=== PATIENT | female | born 1980 | race Caucasian/White ===

== ENCOUNTER 2024-01-25 22:23 | Inpatient (IN) | payer OTHER, SELFPAY ==
--- NOTE | 2024-01-25 18:02 | ED.GENMED ---
ED Provider Triage
<Radha Barnhart PA-C - Last Filed: 01/25/24 18:06>
-
Patient seen by provider in Triage?: Seen in Triage
Attestation: A medical screening examination has been initiated by a qualified medical provider. Based on the assessment performed at this time, it has been determined that an emergent medical condition may exist and the patient has been informed
that further medical evaluation and possible additional diagnostic testing may be needed.
HPI: 43yoF here with flu-like symptoms x 4 days. C/o body aches, ABURTO, cough, SOB, subjective fevers. Also having elevated heart rates at home. She believes she has the flu.
GENERAL: Alert , in no apparent distress
EYE: No visual abnormalities.
NECK: Trachea midline
ENT: No visible abnormalities.
LUNGS: No acute respiratory distress
NEUROLOGICAL: Alert and oriented
SKIN: Skin intact. No visible changes.
MUSCULOSKELETAL: Moving extremities normally
PSYCH: Normal and appropriate interaction.
This is a medical evaluation conducted in person to initiate diagnostic evaluation and provide initial therapeutics. Please see further documentation by the treating clinician.
Patient tachycardic in the 130-140s during triage. Cardiac labs, EKG, COVID/flu swab, and CXR ordered.
History of Present Illness
<Radha Barnhart PA-C - Last Filed: 01/25/24 18:06>
General
Chief Complaint: Cold/Flu/URI Symptoms
Time Seen by Provider: 01/25/24 18:23
<Albino Ardon DO - Last Filed: 01/25/24 20:51>
General
Source: patient and spouse
Exam Limitations: none
Nursing documentation reviewed up to this point in time: agreed with
History of Present Illness
History of Present Illness:
Seen with triage PA agree with assessment and plan 43-year-old female -induced hypertension not on antihypertensives been sick for for 5 days cough fatigue no hemoptysis no abdominal pain vomited after she ate no dysuria or frequency,
thinks she may have the flu, drinks alcohol socially not excess,
Past History
<Albino Ardon DO - Last Filed: 01/25/24 20:51>
Past History
ED Past Medical History: HTN
Social History
Tobacco: Non-smoker
Alcohol: Occasional
Drug: None
Personal:
Living: with family
Employment: Employed
Review of Systems
<Albino Ardon DO - Last Filed: 01/25/24 20:51>
Review of Systems
All Other Systems: Not applicable
Constitutional: Reports fever and fatigue
Respiratory: Reports cough and trouble breathing
ABD/GI: Reports vomiting and diarrhea; Denies abdominal pain
: Reports no symptoms
Musculoskeletal: Reports muscle stiffness
Neurological: Reports dizzy and weakness
Phy Exam
<Albino Ardon DO - Last Filed: 01/25/24 20:51>
Physical Exam
Physical Exam:
Physical Exam
General: Ill-appearing female
Neck: Lips are dry
Heart: Tachycardic
Lungs: Bilateral crackles
Abdomen: Not tender
Neuro: alert and oriented. no focal neurological deficits
Skin: no rash
Psychiatric: well kept. interactive and cooperative
Extremities: no edema. No calf pain
Course
<Radha Barnhart PA-C - Last Filed: 01/25/24 18:06>
Orders/Labs/Results
Orders:
Orders
01/25/24 18:03
Electrocardiogram (*1) Urgent
Reason for Study: Shortness of Breath
EKG- Treatment ONCE
01/25/24 18:04
CR Chest - 2 Views Urgent
Comment:
Reason For Exam: Cough, SOB
01/25/24 18:55
COVID-19 Antigen Urgent
Source: Nasal Swab
Complete Blood Count/With Diff Urgent
Comprehensive Metabolic Panel Urgent
Troponin I Urgent
Influenza A+B Rapid Molecular Urgent
KATHY Source: Nasal Swab
Specimen Description:
01/25/24 19:00
0.9% Sodium Chloride 1000 ml [Nss] 1,000 ml IV BOLUS
Acetaminophen [Tylenol] 650 mg PO NOW STA
Ipratropium/Albuterol Sulfate [Duoneb] 3 ml INH R NOW STA
Ketorolac [Toradol] 30 mg IV NOW STA
01/25/24 19:52
Ondansetron Injectable [Zofran] 4 mg IV NOW STA
01/25/24 20:08
CefTRIAXone [Rocephin] 1,000 mg IV NOW STA
Dexamethasone Sod Phosphate [Decadron] 10 mg IV NOW STA
01/25/24 20:47
0.9% Sodium Chloride 1000 ml [Nss] 1,000 ml IV BOLUS
Ondansetron Injectable [Zofran] 4 mg IV NOW STA
Abnormal Lab Results
01/25/24
18:55
MCV 73.8 L fL
(81.0-99.0)
MCH 23.6 L pg
(27.0-31.0)
MCHC 32.0 L g/dL
(33.0-37.0)
RDW 15.9 H %
(11.5-14.5)
Absolute Lymphs (auto) 0.8 L 10^3/uL
(1.2-3.4)
Neutrophils % 77.1 H %
(42.2-75.2)
Lymphocytes % 13.0 L %
(20.5-51.1)
BUN 21 H mg/dl
(7-17)
Glucose 111 H mg/dl
(70-99)
Calcium 10.7 H mg/dl
(8.4-10.2)
Alkaline Phosphatase 135 H U/L
(38-126)
01/25/24 18:55
01/25/24 18:55
Vital Signs
Initial and Last Documented VS:
Initial Vital Signs
Temp Pulse Resp BP Pulse Ox
99.2 F 138 18 141/102 96
01/25/24 18:03 01/25/24 18:03 01/25/24 18:03 01/25/24 18:03 01/25/24 18:03
Last Documented Vital Signs
Temp Pulse Resp BP Pulse Ox
99.2 F 138 18 138/101 92
01/25/24 18:03 01/25/24 18:03 01/25/24 18:03 01/25/24 18:48 01/25/24 20:15
<Albino Ardon, DO - Last Filed: 01/25/24 20:51>
Orders/Labs/Results
Orders:
Orders
01/25/24 18:03
Electrocardiogram (*1) Urgent
Reason for Study: Shortness of Breath
EKG- Treatment ONCE
01/25/24 18:04
CR Chest - 2 Views Urgent
Comment:
Reason For Exam: Cough, SOB
01/25/24 18:55
COVID-19 Antigen Urgent
Source: Nasal Swab
Complete Blood Count/With Diff Urgent
Comprehensive Metabolic Panel Urgent
Troponin I Urgent
Influenza A+B Rapid Molecular Urgent
KATHY Source: Nasal Swab
Specimen Description:
01/25/24 19:00
0.9% Sodium Chloride 1000 ml [Nss] 1,000 ml IV BOLUS
Acetaminophen [Tylenol] 650 mg PO NOW STA
Ipratropium/Albuterol Sulfate [Duoneb] 3 ml INH R NOW STA
Ketorolac [Toradol] 30 mg IV NOW STA
01/25/24 19:52
Ondansetron Injectable [Zofran] 4 mg IV NOW STA
01/25/24 20:08
CefTRIAXone [Rocephin] 1,000 mg IV NOW STA
Dexamethasone Sod Phosphate [Decadron] 10 mg IV NOW STA
01/25/24 20:47
0.9% Sodium Chloride 1000 ml [Nss] 1,000 ml IV BOLUS
Ondansetron Injectable [Zofran] 4 mg IV NOW STA
Abnormal Lab Results
01/25/24
18:55
MCV 73.8 L fL
(81.0-99.0)
MCH 23.6 L pg
(27.0-31.0)
MCHC 32.0 L g/dL
(33.0-37.0)
RDW 15.9 H %
(11.5-14.5)
Absolute Lymphs (auto) 0.8 L 10^3/uL
(1.2-3.4)
Neutrophils % 77.1 H %
(42.2-75.2)
Lymphocytes % 13.0 L %
(20.5-51.1)
BUN 21 H mg/dl
(7-17)
Glucose 111 H mg/dl
(70-99)
Calcium 10.7 H mg/dl
(8.4-10.2)
Alkaline Phosphatase 135 H U/L
(38-126)
01/25/24 18:55
01/25/24 18:55
Vital Signs
Initial and Last Documented VS:
Initial Vital Signs
Temp Pulse Resp BP Pulse Ox
99.2 F 138 18 141/102 96
01/25/24 18:03 01/25/24 18:03 01/25/24 18:03 01/25/24 18:03 01/25/24 18:03
Last Documented Vital Signs
Temp Pulse Resp BP Pulse Ox
99.2 F 138 18 138/101 92
01/25/24 18:03 01/25/24 18:03 01/25/24 18:03 01/25/24 18:48 01/25/24 20:15
<Albino Ardon DO - Last Filed: 01/25/24 20:51>
*Critical Care Note
Total Time (30-74mins, 75-104mins- exclusive of procedures): Not Applicable
<Albino Ardon, - Last Filed: 01/25/24 20:51>
Update Note
Update Note:
Update labs noted viral swabs noted chest x-ray noted report noted will start on antibiotics patient and spouse updated
8:45 PM patient with persistent nausea vomiting not tolerating anything by mouth, despite IV fluids multiple doses of antiemetics at this point I think will be prudent to admit her to the hospital she been sick for most of the week
ED Attending Note
<Radha Barnhart PA-C - Last Filed: 01/25/24 18:06>
-
Portions of this chart may have been created with voice recognition software.� Occasional wrong word or��sound alike� substitutions may have occurred due to the inherent limitations of voice recognition software.
Discharge Plan
Departure
Patient Disposition: Admit
Date of Disposition: 01/25/24
Time of Disposition: 20:49
Admit to: Med/Surg
Presentation/result/management discussed w/ accepting MD/DO: Hospitalist
Patient with high blood pressure during this ER visit?: Yes
Condition: Fair
Covid-19: Negative COVID-19
Discharge Problem:
Intractable nausea and vomiting, Community acquired pneumonia
Prescriptions:
No Action
cetirizine 10 MG tablet
10 mg PO HS
montelukast 10 MG tablet
10 mg PO HS
vilazodone [Viibryd] 40 mg Tablet
40 mg PO HS
Referrals:
UNKNOWN - PT DOES,NOT KNOW [Family Provider] -
Interventions
Interventions:
*Risk Screen - Suicide Last Done: 01/25/24 18:03
*General Assessment Last Done: 01/25/24 18:03
*Neglect/Abuse Screening Last Done: 01/25/24 18:03
ED- Fall Risk Assessment Last Done: 01/25/24 18:49
*ED COVID-19 Vaccine History Last Done: 01/25/24 18:03
ED- Pulmonary Assessment Last Done: 01/25/24 18:49
Discharge Date and Time
Print Language: SETSWANA
[2024-01-25 18:03] VITALS: BP 141/102
[2024-01-25 18:48] VITALS: BP 138/101; BMI 31.2
[2024-01-25 19:02] LABS: % Basophils 0.5 % (0-2); % Eosinophils 0.5 % (0-6); % Immature Granulocytes 0.2 % (0-0.5); % Monocytes 8.7 % (1.7-9.3); % Neutrophils 77.1 % (42.2-75.2); Absolute Lymphocytes 0.8 10^3/uL (1.2-3.4); Absolute Monocytes 0.5 10^3/uL (0.1-0.6); Absolute Neutrophils 4.8 10^3/uL (1.4-6.5); Hematocrit 39.1 % (37.0-47.0); Hemoglobin 12.5 g/dL (12.0-16.0); Mean Corpuscular Hgb 23.6 pg (27.0-31.0); Mean Corpuscular Volume 73.8 fL (81.0-99.0); Mean Platelet Volume 9.6 fL (7.4-10.4); Nucleated Red Blood Cells % 0 %; Platelet Count 257 10^3/uL (130-400); Red Cell Dist. Width 15.9 % (11.5-14.5); White Blood Cell Count 6.2 10^3/uL (4.8-10.8)
[2024-01-25] MEDS: TYLENOL 650 MG PO (19:15)
[2024-01-25] MEDS: NSS 1000 IV ×2 (19:15→20:52)
[2024-01-25] MEDS: DUONEB 3 ML INH (19:16)
[2024-01-25] MEDS: TORADOL 30 MG IV (19:16)
[2024-01-25 19:23] LABS: ALT (SGPT) 25 U/L (0-35); AST (SGOT) 27 U/L (14-36); Albumin 4.3 g/dl (3.5-5.0); Alkaline Phosphatase 135 U/L (38-126); Blood Urea Nitrogen 21 mg/dl (7-17); Calcium 10.7 mg/dl (8.4-10.2); Carbon Dioxide 22 mmol/L (22-30); Chloride 104 mmol/L (98-107); Estimated Creatinine Clearance > 125 ml/min; Glucose 111 mg/dl (70-99); Potassium 3.9 mmol/L (3.5-5.1); Sodium 139 mmol/L (135-145); Total Bilirubin 0.3 mg/dl (0.2-1.3); Total Protein 7.1 g/dl (6.3-8.2); eGFR > 60.00
[2024-01-25 19:27] LABS: Troponin I < 0.012 ng/ml
[2024-01-25 19:37] LABS: COVID-19 Antigen Negative (Negative)
[2024-01-25] MEDS: ZOFRAN 4 MG IV ×2 (19:55→20:50)
[2024-01-25] MEDS: DECADRON 10 MG IV (20:42)
[2024-01-25] MEDS: ROCEPHIN 1000 MG IV (20:42)
[2024-01-25 20:44] VITALS: BP 154/102
[2024-01-25 21:00] VITALS: BP 141/103
[2024-01-25] MEDS: FLUSH (NSS) 1 FLUSH IV (21:32)
--- NOTE | 2024-01-25 21:35 | HPS.HSE ---
Family Physician
-
Family Physician: NOT KNOW UNKNOWN - PT DOES
Chief Complaint
-
body aches, ABURTO, cough, SOB, subjective fevers.
History of Present Illness
43F HX asthma and anxiett pw
flu-like symptoms x 4 day including body aches, ABURTO, cough, SOB, subjective fevers.
- Noted elevated heart rates at home.
- NEG flua A & B
- NEG Covid
Medical History
Past Medical History
Past Medical History: Reports Asthma
Past Surgical History: Reports Gynocological
Social History
Tobacco: Smoker
Alcohol: None
Drug: None
Family History
Family History: Not pertinent
Allergies / Home Medications
Allergies reflects when Allergies were last updated in [facility].
Home Medications with original date entered in [facility]
Allergy/Medication List:
Allergies
Allergy/AdvReac Type Severity Reaction Status Date / Time
No Known Allergies Allergy Verified 01/25/24 18:06
Home Medications
cetirizine 10 mg tablet 10 mg PO HS Allergies 01/02/20
montelukast 10 mg tablet 10 mg PO HS Allergies 01/02/20
vilazodone 40 mg tablet (Viibryd) 40 mg PO HS Mental Health/Anxiety 02/16/22
Review of Systems
-
Constitutional: Reports No Symptoms
EENT: Reports No Symptoms
Respiratory: Reports See HPI
Cardiac: Reports No Symptoms
Abdomen/GI: Reports Nausea and Vomiting
: Reports No Symptoms
Musculoskeletal: Reports No Symptoms
Skin: Reports No Symptoms
Neurological: Reports No Symptoms
Endocrine: Reports No Symptoms
Hematologic/Lymphatic: Reports No Symptoms
Psych: Reports No Symptoms
Physical Exam
Vital Signs
Vital Signs
Temp Pulse Resp BP Pulse Ox
99.2 F 138 18 154/102 91
01/25/24 18:03 01/25/24 18:03 01/25/24 18:03 01/25/24 20:44 01/25/24 20:45
Physical Exam
General: Well Developed, Well Nourished and No Apparent Distress
HEENT: NormoCephalic, Moist mucous membranes and Atraumatic
Respiratory: Clear
Cardiac: S1/S2 and Regular Rhythm; No Murmur or Rub
GI: Soft, Non Tender, Non Distended and Normal Bowel Sounds; No Organomegaly
Rectal: Deferred by Provider
Musculoskeletal: No Clubbing, No Cyanosis and No Edema
Skin: No Rash
Neuro: Nonfocal/grossly intact
Laboratory Results
-
01/25/24 18:55
01/25/24 18:55
Laboratory Results
Total Bilirubin 0.3 mg/dl (0.2-1.3) 01/25/24 18:55
AST 27 U/L (14-36) 01/25/24 18:55
ALT 25 U/L (0-35) 01/25/24 18:55
Alkaline Phosphatase 135 U/L (38-126) H 01/25/24 18:55
Troponin I < 0.012 ng/ml 01/25/24 18:55
Data Reviewed
-
Diagnostic Radiology: Report Reviewed by me
Lab Data: Labs Reviewed by me
Impression/Plan
-
Vital Signs
Temp Pulse Resp BP Pulse Ox
99.2 F 138 18 154/102 91
01/25/24 18:03 01/25/24 18:03 01/25/24 18:03 01/25/24 20:44 01/25/24 20:45
Abnormal Lab Results
01/25/24
18:55
MCV 73.8 L
MCH 23.6 L
MCHC 32.0 L
RDW 15.9 H
Absolute Lymphs (auto) 0.8 L
Neutrophils % 77.1 H
Lymphocytes % 13.0 L
BUN 21 H
Glucose 111 H
Calcium 10.7 H
Alkaline Phosphatase 135 H
Data
WCC 6.2
BUN 21
BG 110
Ca 10.7
AKP 135
NEG TPNI
NEG Covid
NEG Flu A & B
CXR:
bilateral mild mid lung pneumonia considering the patient's symptoms. Repeat exam in 2 weeks after treatment is recommended to exclude underlying pulmonary nodules.
EKG:
NORMAL SINUS RHYTHM
NORMAL ECG
NO PREVIOUS ECGS AVAILABLE
ASSESSMENT & PLAN
POS CXR for b/l mild lung PNA : CAP vs aspiration
Associated with broncho spasm
HX Asthma on Montelukast
- check PCT
- Empiric IV CFTZ and IV Azithromycin
- Medrol dose pack
- Nebs qid and PRN
Intractable N/V
- IVF
- anti emetics
Sinus tachy
- check UDS
DVT Px: LMWH
Code: Full code
IP/Obs
[2024-01-25 22:00] VITALS: BP 150/97
[2024-01-25 22:23] VITALS: BMI 31.6
[2024-01-25 22:27] LABS: Lactic Acid 0.5 mmol/L (0.7-2.0)
[2024-01-25 22:44] LABS: Procalcitonin 0.06 ng/ml (0.0-0.25)
[2024-01-25 23:00] VITALS: BP 151/108
[2024-01-25 23:51] LABS: Amphetamines Negative (Negative); Barbiturates Negative (Negative); Benzodiazepines Negative (Negative); Buprenorphine Negative (Negative); Cocaine Negative (Negative); Marijuana Negative (Negative); Methadone Negative (Negative); Methamphetamines Negative (Negative); Opiates Negative (Negative); Phencyclidine Negative (Negative); Tricyclic Antidepressants Negative (Negative)
[2024-01-26] VITALS (16 sets, daily range): BP systolic 132–151; BP diastolic 89–115; BMI 31.7
[2024-01-26] MEDS: SINGULAIR 10 MG PO ×2 (00:13→20:14)
[2024-01-26] MEDS: ZITHROMAX 252.5 MG IV (00:13)
[2024-01-26] MEDS: NSS 1000 IV (00:16)
[2024-01-26] MEDS: MEDROL 24 MG PO (00:42)
[2024-01-26] MEDS: TYLENOL 650 MG PO ×3 (02:02→21:58)
--- NOTE | 2024-01-26 04:02 | DOWNTIME ---
There was a [employer] Client Course Developer Downtime on 12/29/2023 from 0100 to 12/29/2023 at 0300. Downtime documentation of patient's care, including medication administrations, has been reconciled in the electronic record per guidelines. Refer to the
patient's paper chart under the miscellaneous tab to see printed paper medication records and downtime forms.
--- NOTE | 2024-01-26 04:43 | DOWNTIME ---
There was a [employer] Client Wool Cleaner Downtime on 01/26/2024 from 0100 to 01/26/2024 at 0355. Downtime documentation of patient's care, including medication administrations, has been reconciled in the electronic record per guidelines. Refer to the
patient's paper chart under the miscellaneous tab to see printed paper medication records and downtime forms.
[2024-01-26 05:37] LABS: Hematocrit 34.9 % (37.0-47.0); Hemoglobin 11.2 g/dL (12.0-16.0); Mean Corp Hgb Conc. 32.1 g/dL (33.0-37.0); Mean Corpuscular Hgb 23.6 pg (27.0-31.0); Mean Corpuscular Volume 73.5 fL (81.0-99.0); Mean Platelet Volume 9.7 fL (7.4-10.4); Platelet Count 260 10^3/uL (130-400); Red Blood Cell Count 4.75 10^6/uL (4.20-5.40); Red Cell Dist. Width 15.7 % (11.5-14.5); White Blood Cell Count 5.7 10^3/uL (4.8-10.8)
[2024-01-26 05:58] LABS: ALT (SGPT) 23 U/L (0-35); AST (SGOT) 23 U/L (14-36); Albumin 3.8 g/dl (3.5-5.0); Alkaline Phosphatase 113 U/L (38-126); Blood Urea Nitrogen 20 mg/dl (7-17); Calcium 10.2 mg/dl (8.4-10.2); Carbon Dioxide 18 mmol/L (22-30); Chloride 108 mmol/L (98-107); Estimated Creatinine Clearance > 125 ml/min; Glucose 146 mg/dl (70-99); Potassium 4.7 mmol/L (3.5-5.1); Sodium 139 mmol/L (135-145); Total Bilirubin 0.2 mg/dl (0.2-1.3); Total Protein 6.5 g/dl (6.3-8.2); eGFR > 60.00
[2024-01-26] MEDS: MEDROL 20 MG PO (08:09)
--- NOTE | 2024-01-26 13:49 | W.PN.HOSP.TC ---
Today's Communication/Plan
-
Antibiotics per
Corticosteroids
Urine Legionella level.
CT scan PE protocol.
Check TSH.
Check iron level
If persistent tachycardia consider echocardiogram
Assessment / Plan
Assessment / Plan
Impression:
Presentation with persistent cough and fatigue, occasional night sweats
Bilateral pneumonia, community-acquired, possible atypical pathogen
Acute hypoxic respiratory insufficiency secondary to above
Persistent sinus tachycardia.
Mild intermittent asthma
Mild anemia with microcytosis
Anxiety/depression.
History of hysterectomy
History of cholecystectomy
BMI 31
Plan:
Bilateral pneumonia, suspect walking pneumonia
Afebrile.
Normal white count.
Negative procalcitonin.
Low clinical suspicion for aspiration.
Check urine Legionella antigen.
Suspect mild asthma exacerbation given acute infection.
Continue antibiotics: Ceftriaxone/Zithromax
Continue systemic steroid taper
Cough suppressant and mucolytic.
Incentive spirometry
Bronchodilators
Persistent tachycardia.
Acute hypoxic respiratory insufficiency reported with oxygen down to 87% on room air.
Will check CT scan of the chest PE protocol.
Monitor closely
DVT prophy with Lovenox.
Check TSH
Mild anemia with microcytosis.
Status post hysterectomy
Check iron levels
Anticipated Discharge: 24 - 48 hours
Subjective/Interval History
-
Date of Service: January 26, 2024
Objective Data
-
Labs:
Laboratory Results
01/26/24
05:18
WBC 5.7
Hgb 11.2 L
Hct 34.9 L
Plt Count 260
Sodium 139
Potassium 4.7
Chloride 108 H
Carbon Dioxide 18 L
BUN 20 H
Creatinine 0.6
Glucose 146 H
Calcium 10.2
Total Bilirubin 0.2
AST 23
ALT 23
Alkaline Phosphatase 113
Vital Signs:
Vital Signs
Temp Pulse Resp BP Pulse Ox
98.5 F 98 18 138/115 97
01/26/24 11:21 01/26/24 12:18 01/25/24 18:03 01/26/24 12:18 01/26/24 12:18
Physical Exam
-
General: Well Developed and No Apparent Distress
HEENT: Normocephalic, Atraumatic and Moist Mucous Membranes
Respiratory: Rhonchi; Negative Wheezes
Cardiac: Regular Rhythm and S1/S2; Negative Murmur, Rub or Gallop
GI: Soft, Nontender, Nondistended and Normal Bowel Sounds; Negative Organomegaly
Rectal: Deferred by Provider
Musculoskeletal: No Clubbing, No Cyanosis and No Edema
Skin: Negative Rash
Neuro: Nonfocal/Grossly Intact
[2024-01-26] MEDS: ROBITUSSIN DM 10 ML PO ×3 (14:05→21:59)
[2024-01-26 15:05] LABS: TSH 0.51 uIU/ml (0.47-4.68)
[2024-01-26 15:09] LABS: Ferritin 17.4 ng/ml (6.24-137)
[2024-01-26 15:27] LABS: Iron 35 ug/dl (37-170)
[2024-01-26 15:37] LABS: Percent Saturation 10 % (20-50); Total Iron Binding Capacity 349 ug/dl (265-497)
[2024-01-26] MEDS: LOVENOX 40 MG SC (17:59)
[2024-01-26] MEDS: ZITHROMAX 500 MG PO (19:13)
[2024-01-26] MEDS: STERILE WATER FOR INJECTION 10 ML IV (19:13)
[2024-01-26] MEDS: ROCEPHIN 1000 MG IV (19:13)
--- NOTE | 2024-01-26 20:15 | PTCARENOTE ---
Received patient from ED via stretcher. Patient ambulated from stretcher to bed independently. Received patient on 2L of oxygen at 98%. Oriented patient to room and placed call hector within reach.
[2024-01-26] MEDS: ZYRTEC 10 MG PO (22:18)
[2024-01-27 03:25] VITALS: BP 139/88
[2024-01-27 07:53] VITALS: BP 152/105
[2024-01-27] MEDS: ROBITUSSIN DM 10 ML PO ×3 (09:32→20:05)
[2024-01-27] MEDS: MEDROL 16 MG PO (09:52)
--- NOTE | 2024-01-27 11:23 | PN.CDI ---
CDI
- -
CDI:
Physician Documentation Request
Admit Date: 01/25/24 22:23
Dear Doctor August,
Please review the following and provide your response in the progress notes.
Clinical Indicators:
Pt admitted with Bilateral Pneumonia on Ceftriaxone/Zithromax / Mild intermittent asthma exacerbation
Documented per ED, ' ....flu-like symptoms x 4 days. C/o body aches, ABURTO, cough, SOB, subjective fev..Patient tachycardic in the 130-140s during triage...'
On admission HR 138, RR 24
Please clarify which of the following most accurately describes the status of the patient's infection:
Sepsis-POA
- Systemic manifestations of infection, with 2 or more SIRS criteria which include:
- Fever >100.4 degrees F or hypothermia < 96.8 degrees F
- Leukocytosis - WBC > 12,000 or leukopenia - WBC < 4,000 or > 10% bands
- Tachycardia > 90 beats per minute
- Tachypnea - RR > 20 breaths per minute or PaCO2 , 32mmHg
Source: Merck Manual 2013
Pneumonia , Without Systemic Illness
Other ( please specify)
Use of terms such as suspected, likely, concern for, or probable (associated with a specific diagnosis that is being evaluated, monitored, or treated as if it exists) are acceptable and can be coded in the inpatient setting, when documented at the
time of discharge.
Thank you,
Mckayla Vu RN
CDI Specialist
[facility]
Please use your independent medical judgment in providing your response.
[2024-01-27 11:45] VITALS: BP 152/100
--- NOTE | 2024-01-27 15:07 | W.PN.HOSP.TC ---
Today's Communication/Plan
-
Attempt to wean off oxygen
IV antibiotics
Steroid taper
Mucolytic's and antitussives.
Assessment / Plan
Assessment / Plan
Impression:
Presentation with persistent cough and fatigue, occasional night sweats
Bilateral pneumonia, community-acquired, possible atypical pathogen
Acute hypoxic respiratory insufficiency secondary to above
Persistent sinus tachycardia.
Mild intermittent asthma
Mild anemia with microcytosis
Anxiety/depression.
History of hysterectomy
History of cholecystectomy
BMI 31
Plan:
Bilateral pneumonia, suspect walking pneumonia
Afebrile.
Normal white count.
Negative procalcitonin.
Low clinical suspicion for aspiration.
Check urine Legionella antigen. Negative
Suspect mild asthma exacerbation given acute infection.
CT scan negative for pulmonary embolism with bilateral infiltrate/multifocal pneumonia
Continue antibiotics: Ceftriaxone/Zithromax
Continue systemic steroid taper
Cough suppressant and mucolytic.
Incentive spirometry
Bronchodilators
Persistent tachycardia.
Acute hypoxic respiratory insufficiency reported with oxygen down to 87% on room air.
Will check CT scan of the chest PE protocol.
Monitor closely
DVT prophy with Lovenox.
TSH within normal limits
Mild anemia with microcytosis.
Status post hysterectomy
Check iron levels
Anticipated Discharge: 24 - 48 hours
Subjective/Interval History
-
Date of Service: January 27, 2024
Objective Data
-
Vital Signs:
Vital Signs
Temp Pulse Resp BP Pulse Ox
98.1 F 89 20 152/100 96
01/27/24 11:45 01/27/24 11:45 01/27/24 11:45 01/27/24 11:45 01/27/24 11:45
I&O
01/26/24 01/27/24 01/28/24
06:59 06:59 06:59
Intake Total 480 / 480
Balance 480 / 480
Physical Exam
-
General: Well Developed and No Apparent Distress
HEENT: Normocephalic, Atraumatic and Moist Mucous Membranes
Respiratory: Rhonchi; Negative Wheezes
Cardiac: Regular Rhythm and S1/S2; Negative Murmur, Rub or Gallop
GI: Soft, Nontender, Nondistended and Normal Bowel Sounds; Negative Organomegaly
Rectal: Deferred by Provider
Musculoskeletal: No Clubbing, No Cyanosis and No Edema
Skin: Negative Rash
Neuro: Nonfocal/Grossly Intact
[2024-01-27 15:57] VITALS: BP 157/102
[2024-01-27] MEDS: LOVENOX 40 MG SC (17:17)
--- NOTE | 2024-01-27 17:49 | CM ---
met wtith patient at bedside.patient lives with her spouse and 4 children in house witn 2 [address],her bed and bath is on the first level.she is totally I .patient has had a vn through [facility] .she has been to [facility] in past.her pcp is dr heaven mckeon and
she uses [facility] in [place].
PMH:anxiety,depression,hysterectomy,dilip
patient is adm with pna on iv rocephin,po zithromax,o2 at 2 litrs nc and wean,weaning po steroids.Plan home with no needs.
--- NOTE | 2024-01-27 18:26 | PTCARENOTE ---
Received patient this am AAOx3. Pt coughing frequently. Medicated with Robitussin with relief. O2 at 2 L via nasal this am an afternoon. 02 sat 94-96 % on 2L. Pt weaned off 02. 95% on Ra. Tolerated diet well. Made patient comfortable. Cont to
assess patient status.
[2024-01-27 19:29] VITALS: BP 139/99
[2024-01-27] MEDS: NON-FORMULARY ITEM PO ×2 (19:57→19:58)
[2024-01-27] MEDS: ROCEPHIN 1000 MG IV (20:00)
[2024-01-27] MEDS: STERILE WATER FOR INJECTION 10 ML IV (20:00)
[2024-01-27] MEDS: ZITHROMAX 500 MG PO (20:00)
[2024-01-27] MEDS: SINGULAIR 10 MG PO (20:02)
[2024-01-27] MEDS: ZYRTEC 10 MG PO (20:02)
[2024-01-27] MEDS: NON-FORMULARY ITEM 40 MG PO (20:03)
[2024-01-27 23:38] VITALS: BP 139/94
[2024-01-28] MEDS: ROBITUSSIN DM 10 ML PO ×2 (02:28→14:15)
[2024-01-28 03:26] VITALS: BP 115/78
[2024-01-28 07:40] VITALS: BP 150/96
[2024-01-28] MEDS: MEDROL 12 MG PO (10:54)
[2024-01-28 11:48] VITALS: BP 153/100
--- NOTE | 2024-01-28 12:33 | W.DS.TRANS ---
DC Summary - Office Automation Clerk
-
Discharge Instructions:
Discharge Diagnosis/Procedures Pneumonia
Diet Regular
Others Tests CXR to follow with multifocal pneumonia
resolution in 4-6 weeks
Instructions:
Stand-Alone Forms:
Changes to Home Medications: Yes
Discharge Medications:
DC Medications w/original date entered in [employer]
cetirizine 10 mg tablet 10 mg PO HS Allergies 01/02/20
montelukast 10 mg tablet 10 mg PO HS Allergies 01/02/20
vilazodone 40 mg tablet (Viibryd) 40 mg PO HS Mental Health/Anxiety 02/16/22
azithromycin 250 mg tablet 500 mg (2 x 250 mg) PO DAILY@1999 #5 tabs 01/28/24
cefuroxime axetil 500 mg tablet 500 mg PO BID 5 days #10 tabs 01/28/24
dextromethorphan-guaifenesin 10 mg-200 mg/5 mL oral liquid 10 ml PO Q8H PRN Cough #473 mL 01/28/24
Home Medication Changes
Complete antibiotics for aditional 5 days
Pending Results: No
--- NOTE | 2024-01-28 12:42 | CM ---
CM spoke with patient via phone to discuss discharge plan
Patient reports family will transport home
Plan: Discharge to home today; no needs
[2024-01-28] MEDS: AFLURIA (36 mos+) 2024-2025 FORMULA 0.5 ML IM (14:10)
== END 2024-01-28 15:29 | disposition home or self-care (01) | DRG 194 ==
LOC: 4 EAST ACU 22:23
PROVIDERS: Physician Assistant; ADMITTING PHYSICIAN Internal Medicine; ATTENDING PHYSICIAN Internal Medicine; EMERGENCY PHYSICIAN Emergency Medicine
PROC: 3E02340 Introduction of Influenza Vaccine into Muscle, Percutaneous Approach (ICD-10-PCS; 2024-01-28)
DX: J18.9 Pneumonia, unspecified organism (principal); J45.21 Mild intermittent asthma with (acute) exacerbation; R00.0 Tachycardia, unspecified; R11.2 Nausea with vomiting, unspecified; F17.200 Nicotine dependence, unspecified, uncomplicated; R09.02 Hypoxemia; R06.89 Other abnormalities of breathing; E66.9 Obesity, unspecified; D64.9 Anemia, unspecified; F41.9 Anxiety disorder, unspecified; F32.A Depression, unspecified; Z90.710 Acquired absence of both cervix and uterus; Z68.31 Body mass index [BMI] 31.0-31.9, adult; Z90.49 Acquired absence of other specified parts of digestive tract; Z23 Encounter for immunization; Z11.52 Encounter for screening for COVID-19
CPT/HCPCS: 71046; 71275; 80053; 80306; 82728; 83540; 83550; 83605; 84145; 84443; 84484; 85025; 85027; 87449; 87502; 87811; 90686; 93005; G0008; Q9967

== ENCOUNTER → 2024-02-22 09:03 | Outpatient (REF) | payer OTHER, SELFPAY | LOC: RAD 09:03 | PROVIDERS: ATTENDING PHYSICIAN Family Medicine | DX: E83.52 Hypercalcemia (principal) | CPT/HCPCS: 78071; A9500 ==

== ENCOUNTER → 2024-04-13 16:46 | Outpatient (REF) | payer OTHER, SELFPAY | LOC: RAD 16:46 | PROVIDERS: ATTENDING PHYSICIAN Nurse Practitioner Family | DX: M79.672 Pain in left foot (principal) | CPT/HCPCS: 73630 ==

== ENCOUNTER → 2024-04-18 12:33 | Outpatient (REF) | payer OTHER, SELFPAY | LOC: HWRAD 12:33 | PROVIDERS: ATTENDING PHYSICIAN Surgery; FAMILY PHYSICIAN Family Medicine | DX: E21.3 Hyperparathyroidism, unspecified (principal) | CPT/HCPCS: 76536 ==

== ENCOUNTER → 2024-05-01 09:23 | Outpatient (REF) | payer OTHER, SELFPAY | LOC: RAD 09:23 | PROVIDERS: ATTENDING PHYSICIAN Surgery; FAMILY PHYSICIAN Family Medicine | DX: E21.3 Hyperparathyroidism, unspecified (principal) | CPT/HCPCS: 77080 ==

== ENCOUNTER → 2024-08-16 16:19 | Outpatient (REF) | payer OTHER, SELFPAY | LOC: RAD 16:19 | PROVIDERS: ATTENDING PHYSICIAN Family Medicine | DX: R10.9 Unspecified abdominal pain (principal) | CPT/HCPCS: 74176 ==

== ENCOUNTER 2024-08-28 06:22 | Day surgery (SDC) | payer OTHER, SELFPAY ==
[2024-08-28] VITALS (13 sets, daily range): BP systolic 112–134; BP diastolic 77–96; BMI 32.3
[2024-08-28] MEDS: TRANSDERM-SCOP 1 PATCH TRANSDERM (11:15)
[2024-08-28] MEDS: NORMOSOL-R/PLASMALYTE-A 1000 IV (11:16)
[2024-08-28] MEDS: ZOFRAN 4 MG IV (13:28)
[2024-08-28] MEDS: COMPAZINE 5 MG IV (13:38)
[2024-08-28] MEDS: TORADOL 30 MG IV (14:10)
[2024-08-28] MEDS: DETROL LA 4 MG PO (14:26)
[2024-08-28] MEDS: Pyridium 200 MG PO (14:26)
[2024-08-28] MEDS: ROXICODONE 5 MG PO (15:27)
== END 2024-08-28 17:20 | disposition home or self-care (01) ==
LOC: SDS 06:22
PROVIDERS: ATTENDING PHYSICIAN Surgery
DX: N13.2 Hydronephrosis with renal and ureteral calculous obstruction (principal)
CPT/HCPCS: 52352; 74018; 76000; 82365; A4300; C1758; C1769; C1894